=== PATIENT | male | born 1975 | race Hispanic/Latino ===

== ENCOUNTER → 2020-01-29 | Day surgery (SDC) | payer OTHER ==
[2020-01-24 10:01] LABS: BASOPHILS % 0.3 % (0.0-1.0); EOSINOPHILS # (AUTO) 0.9 (0.0-0.4); EOSINOPHILS % 13.5 % (0.0-6.0); HEMATOCRIT 38.9 % (38.2-49.6); HEMOGLOBIN 12.8 g/dL (14.0-18.0); LYMPHOCYTES # (AUTO) 3.2 (1.0-3.2); LYMPHOCYTES % 49.5 % (18.0-39.1); MEAN CORPUSCULAR HEMOGLOBIN 30.5 pg (28-32); MEAN CORPUSCULAR HGB CONC 32.9 g/dL (31-35); MEAN CORPUSCULAR VOLUME 92.6 fL (81-99); MONOCYTES # (AUTO) 0.5 (0.2-0.8); MONOCYTES % 7.7 % (4.4-11.3); NEUTROPHILS # (AUTO) 1.8 (2.1-6.9); NEUTROPHILS % 28.7 % (38.7-80.0); PLATELET COUNT 183 x10e3/uL (140-360); RED CELL DISTRIBUTION WIDTH 14.4 % (11.7-14.4)
[2020-01-24 10:32] LABS: ANION GAP 12.7 mmol/L (8-16); BLOOD UREA NITROGEN 12 mg/dL (7-26); BUN/CREATININE RATIO 16 (6-25); CALCIUM 8.8 mg/dL (8.4-10.2); CARBON DIOXIDE 23 mmol/L (22-29); CHLORIDE 105 mmol/L (98-107); CREATININE, SERUM 0.75 mg/dL (0.72-1.25); EST GLOMERULAR FILTRATION RATE > 60 ML/MIN (60-); GLUCOSE 103 mg/dL (74-118); POTASSIUM 3.7 mmol/L (3.5-5.1); SODIUM 137 mmol/L (136-145)
--- NOTE | 2020-01-28 11:25 | NUR ---
PER PT HE TESTED POS FOR COVID 12/08, THEN TESTED NEG 12/17, THEN POS 01/23. PT TO BRING COPIES OF FIRST 2 COVID TESTS ON DOS PER [facility]IL[facility] AND NHAN ASHLEY TO PROCEED-01/27/2020 CHARGE NURSE JACOB AWARE OF ABOVE INFORMATION - 01/28/2020 @1129
[~2020-01-29] MED LIST: BUPIVACAINE 0.5%/EPI 30 ML SDV INJ ONE; DEXAMETHASONE SOD PHOS INJ 4 MG/ML VIAL ONE; FENTANYL CITRATE/PF 100MCG/2 ML INJ ONE; KETOROLAC TROMETHAMINE 30 MG/ML VIAL ONE; LIDOCAINE HCL 2% LOCAL INJ 5 ML SDV VIAL INJ ONE; MIDAZOLAM HCL 2 MG/2 ML VIAL ONE; ONDANSETRON HCL INJ 2MG/ML 2ML 2 MG/ML VIAL ONE; PROPOFOL IV EMULSION 10 MG/ML 20 ML VIAL ONE; SEVOFLURANE INHAL SOLN 250 ML PEN BTL ONE
--- NOTE | 2020-01-29 07:25 | NUR ---
SPIRITUAL CARE - Pre-Surgery Assessment: Pt in bed. Pt reported supportive attention from family and friends. Intervention: Rug [employer]ter [place] provided pastoral presence, hospitality, and sympathetic listening. Acquainted pt with availability of leather worker while hospitalized. Outcome: Pt expressed appreciation for visit. No need for follow up indicated at this time. [facility] Spiritual Care Department O: [phone]
[2020-01-29 10:35] VITALS: BP 118/65
--- NOTE | 2020-01-29 10:36 | Operative Report ---
DATE OF PROCEDURE: 01/29/2020 SURGEON: Martín Hanson MD PREOPERATIVE DIAGNOSIS: Left inguinal hernia. POSTOPERATIVE DIAGNOSIS: Left inguinal hernia. OPERATION PERFORMED: Repair of sliding left inguinal hernia with extended Prolene hernia system. ANESTHESIA: General. COMPLICATIONS: None. ESTIMATED BLOOD LOSS: Minimal. DESCRIPTION OF PROCEDURE: The patient lying in bed in the supine position under good general anesthesia, the abdomen was prepped with Betadine solution and draped in the usual manner. A left inguinal incision was made, was carried down through the subcutaneous tissue down to the external oblique aponeurosis. External oblique was opened along the length of its fibers and the external inguinal ring was opened. The cord was then mobilized and retracted. Exploration of the cord revealed the presence of a large indirect hernia sac, which was from the cord structures. Examination at this point revealed that this was a sliding hernia with a colon being part of the hernia sac. So the hernia sac was not opened, there was simply just dropped back to the intraabdominal cavity. The preperitoneal space was then entered right through the internal ring and a pocket was created without any difficulty. A large Prolene hernia system was then placed in the preperitoneal space and the underlay patch was deployed without any problems. The overlay patch was then placed over the floor and split inferolaterally to allow for passage of the cord. The mesh was then sutured to the conjoined tendon and the inguinal ligament using interrupted sutures of 2-0 Vicryl. The whole area was thoroughly irrigated. Perfect hemostasis was ascertained. All layers were infiltrated on the way out with a solution of 0.25% Marcaine and 1% lidocaine mixed in equal parts. The external oblique aponeurosis was then closed with a running suture of 2-0 Vicryl. The subcutaneous tissue was approximated with 3-0 plain and the skin was closed with clips. A dressing was applied. The sponge, lap, and needle count was correct. The patient tolerated the procedure well and returned to the recovery room in stable condition. Martín Hanson MD JLR/MODL /[id number]
== END | disposition home or self-care (01) ==
LOC: OR 06:12
PROVIDERS: ATTEND Surgery
DX: K40.90 Unilateral inguinal hernia, without obstruction or gangrene, not specified as recurrent (principal); Z01.810 Encounter for preprocedural cardiovascular examination; Z01.812 Encounter for preprocedural laboratory examination; Z11.59 Encounter for screening for other viral diseases; Z86.19 Personal history of other infectious and parasitic diseases
CPT/HCPCS: 36415; 49525; 80048; 85025; 93005; C1781; J1100; J1885; J2001; J2250; J2405; J2704; J3010; U0002